=== PATIENT | male | born 1970 | race Caucasian/White ===

== ENCOUNTER 2023-12-11 11:16 | Outpatient (AMB) | payer BC, SELFPAY ==
[2023-12-11 11:18] VITALS: BP 124/78; PULSE 52; O2SAT 98; BMI 22.5
--- NOTE | 2023-12-11 11:18 | A.OFFPC_ITS ---
Vital Signs 12/11/23 11:18 Height 6 ft Weight 166 lb BMI 22.5 BP 124/78 Blood Pressure Location Lt brachial Position Sitting Pulse 52 Pulse Source Pulse Oximeter Pulse Oximetry (%) 98 Oxygen Delivery Method Room Air Intake Visit Reasons: SKI PATROLLER/Preventative Care Allergies No Known Allergies Allergy (Verified 12/11/23 11:31) Medication List - Last Reconciled 12/11/23 by Tari Lyno MD No Known Home Meds Tobacco use date assessed: 12/11/23 Dental Screening Dental Screen Date: 12/11/23 Did you have a dental visit in the last 12 months?: No Did you have a dental problem in the last 6 months where you did not have access to dental care?: No Was dental information given to patient?: No HPI SKI PATROLLER/Preventative Care HPI Details 53-year-old male being seen for the 1st time[facility] History (Updated 12/11/23 @ 12:00 by Tari Lyon MD) Left inguinal hernia Undescended left testicle Family History (Updated 12/11/23 @ 11:34 by Gretchen Pham CMA) Mother Breast cancer Substance use disorder Mental health disorder Sister No problems noted. Social History (Updated 12/11/23 @ 12:03 by Tari Lyon MD) Housing: House Alcohol intake: current Comment: 2-3 x a week 1-3 drinks Patient Tobacco Use Status: Former Tobacco user Tobacco use type: Cigarette Years Smoked: quit 2009 1/2 pack a day 5-6 years. once a week marijuana e-Cigarette/Vaping Use: Never Used Second Hand Smoke Exposure: No service: No Current occupational status: employed Current occupation: Construction Cognitive needs: No Hearing needs: No Vision needs: Yes Questionnaire PHQ-9 Over the last 2 weeks, how often have you been bothered by any of the following problems? 1. Little interest or pleasure in doing things: not at all 2. Feeling down, depressed, or hopeless: not at all 3. Trouble falling or staying asleep, or sleeping too much: not at all 4. Feeling tired or having little energy: not at all 5. Poor appetite or overeating: not at all 6. Feeling bad about yourself - or that you are a failure or have let yourself or your family down: not at all 7. Trouble concentrating on things, such as reading the newspaper or watching television: not at all 8. Moving or speaking so slowly that other people could have noticed. Or the opposite - being so fidgety or restless that you have been moving around a lot more than usual: not at all 9. Thoughts that you would be better off or of hurting yourself in some way: not at all Total score: 0 Depression Screening Interpretation: Negative Depression Screening Done: Yes 59042 - PHQ-9 Billing: Yes Source: Developed by Drs. Ilya Maldonado, Kinjal Polanco, Gerson Pedro and colleagues, with an educational jane from [employer]. Thrive Questionnaire Date Thrive assessed: 12/11/23 I am a: Patient What is your living situation today?: I have a steady place to live Within the past 12 months, did the food you bought not last and you didn't have the money to get more?: Never true Within the past 12 months, did you worry whether your food would run out before you got money to buy more?: Never true Do you have trouble paying for medicines?: No Do you have trouble getting transportation to medical appointments?: No Do you have trouble paying your heating and electricity bill?: No Do you have trouble taking care of your child, family member or friend?: No Do you have trouble with day-to-day activities such as bathing, preparing meals, shopping, managing finances, etc.?: No Are you currently unemployed and looking for a job?: No Are you interested in more education?: No Currently or been in a relationship where the following occur: No concerns reported THRIVE Score: 0 AUDIT C Alcohol Use Questionnaire (AUDIT-C) 1. How often do you have a drink containing alcohol?: 2-3 times a week 2. How many drinks containing alcohol do you have on a typical day when you are drinking?: 3 or 4 3. How often do you have six or more drinks on one occasion?: Never Total Score: 4 JANIE-7 AMB Questionnaire JANIE-7 Date JANIE - 7 assessed: 12/11/23 Feeling nervous, anxious, or on edge: 1 = Several days Not being able to stop or control worryin = Not at all Worrying too much about different things: 0 = Not at all Trouble relaxin = Not at all Being so restless that it is hard to sit still: 0 = Not at all Becoming easily annoyed or irritable: 0 = Not at all Feeling afraid as if something awful might happen: 0 = Not at all Total JANIE-7 score (0-4 normal; 5-9 mild; 10-14 moderate; 15-21 severe): 1 Source: Developed by Drs. Ilya Maldonado, Kinjal Polanco, Gerson Pedro and colleagues, with an educational jane from [employer]. Physical exam (Primary Care) Vital Signs: Last Vital Signs Pulse 52 12/11/23 11:18 BP 124/78 12/11/23 11:18 Pulse Ox 98 12/11/23 11:18 Oxygen Delivery Method Room Air 12/11/23 11:18 BMI result Body Mass Index 22.5 Tobacco/Smoking Status: Tobacco use Status Tobacco use date assessed 12/11/23 12/11/23 11:37 Patient Tobacco Use Status Former Tobacco user 12/11/23 11:37 Tobacco use type Cigarette 12/11/23 11:37 e-Cigarette/Vaping Use Never Used 12/11/23 11:37 PHQ-9: PHQ-9 Score PHQ-9: Total score 0 12/11/23 11:37 Depression Screening Interpretation: Negative Thrive Assessment: Date of Thrive Assessment Date Thrive assessed 12/11/23 12/11/23 11:19 Currently or been in a relationship where the following occur: No concerns reported Const General: alert; No acute distress Eyes Conjunctivae: conjunctivae normal Resp Auscultation: clear to auscultation bilaterally Cardio Rate: regular rate Rhythm: regular rhythm GI Inspection: Yes normal to inspection Extrem General: Yes normal to inspection and No edema Assessment and Plan Assessment & Plan (1) SOB (shortness of breath): Code(s): R06.02 - Shortness of breath (2) GERD (gastroesophageal reflux disease): Code(s): K21.9 - Gastro-esophageal reflux disease without esophagitis (3) Colon cancer screening: Code(s): Z12.11 - Encounter for screening for malignant neoplasm of colon Orders: Orders Complete Blood Count Auto Diff Today R06.02 - Shortness of breath Lipid Panel Today E78.00 - Pure hypercholesterolemia, unspecified, R06.02 - Shortness of breath Prostate Specific Antigen Scr Today R06.02 - Shortness of breath PFT pulmonary function test Today R06.02 - Shortness of breath Comprehensive Met. Panel Today R06.02 - Shortness of breath Free T4 (Free Thyroxine) Today R06.02 - Shortness of breath Thyroid Stimulating Hormone Today R06.02 - Shortness of breath Vitamin B12 and Folate Today R06.02 - Shortness of breath Referrals Gastroenterology Referral Z12.11 - Encounter for screening for malignant neoplasm of colon Coding Level of Care Code New Pt Level 4 (46498) Diagnoses SOB (shortness of breath) R06.02 GERD (gastroesophageal reflux disease) K21.9 Colon cancer screening Z12.11
== END 2023-12-11 12:16 | disposition home or self-care (01) ==
PROVIDERS: Visit Provider Internal Medicine
DX: R06.02 Shortness of breath (principal); K21.9 Gastro-esophageal reflux disease without esophagitis; Z12.11 Encounter for screening for malignant neoplasm of colon
CPT/HCPCS: 99204

== ENCOUNTER 2024-07-11 09:23 | Outpatient (AMB) | payer BC, SELFPAY ==
--- NOTE | 2024-07-11 09:35 | A.OFFPC_ITS ---
Vital Signs 07/11/24 09:40 Height 6 ft Weight 158 lb 2 oz BMI 21.4 BP 100/60 Blood Pressure Location Lt brachial Position Sitting Pulse 67 Pulse Source Pulse Oximeter Temp 96.9 F Temp Source Temporal Artery Scan Pulse Oximetry (%) 100 Oxygen Delivery Method Room Air Intake Visit Reasons: annual exam Intake Note: Patient is here today for a physical. 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 Lyon coming in for annual exam. In review of the notes patient was referred to GI last year for colonoscopy but missed his appointment. Patient tells us today he is feeling generally well. He was told in the past he has a diagnosis of COPD and he will occasionally have shortness of breath and coughing episodes that resolved spontaneously. He has never been treated for COPD and did not complete the pulmonary function testing he was sent for last year. Otherwise he has no other concerns today [facility] Surgical History Left inguinal hernia Undescended left testicle Family History (Updated 07/11/24 @ 10:03 by Faby Mclaughlin PA-C) Mother Breast cancer Substance use disorder Mental health disorder Sister No problems noted. Maternal Grandfather Liver cancer Social History Housing: House Alcohol intake: current Comment: 2-3 x a week 1-3 drinks Patient Tobacco Use Status: Former Tobacco user Tobacco use type: Cigarette Years Smoked: quit 2009 1/2 pack a day 5-6 years. once a week marijuana e-Cigarette/Vaping Use: Never Used Second Hand Smoke Exposure: No service: No Current occupational status: employed Current occupation: Construction Cognitive needs: No Hearing needs: No Vision needs: Yes Questionnaire PHQ-9 Over the last 2 weeks, how often have you been bothered by any of the following problems? 1. Little interest or pleasure in doing things: not at all 2. Feeling down, depressed, or hopeless: not at all 3. Trouble falling or staying asleep, or sleeping too much: not at all 4. Feeling tired or having little energy: not at all 5. Poor appetite or overeating: not at all 6. Feeling bad about yourself - or that you are a failure or have let yourself or your family down: not at all 7. Trouble concentrating on things, such as reading the newspaper or watching television: not at all 8. Moving or speaking so slowly that other people could have noticed. Or the opposite - being so fidgety or restless that you have been moving around a lot more than usual: not at all 9. Thoughts that you would be better off or of hurting yourself in some way: not at all Total score: 0 Depression Screening Interpretation: Negative Depression Screening Done: Yes 83018 - PHQ-9 Billing: Yes Source: Developed by Drs. Ilya Maldonado, Kinjal Polanco, Gerson Pedro and colleagues, with an educational jane from [employer]. Thrive Questionnaire Date Thrive assessed: 07/11/24 I am a: Patient What is your living situation today?: I have a steady place to live Within the past 12 months, did the food you bought not last and you didn't have the money to get more?: Never true Within the past 12 months, did you worry whether your food would run out before you got money to buy more?: Never true Do you have trouble paying for medicines?: No Do you have trouble getting transportation to medical appointments?: No Do you have trouble paying your heating and electricity bill?: No Do you have trouble taking care of your child, family member or friend?: No Do you have trouble with day-to-day activities such as bathing, preparing meals, shopping, managing finances, etc.?: No Are you currently unemployed and looking for a job?: No Are you interested in more education?: Yes Please select the resources that you would like help with: None Currently or been in a relationship where the following occur: No concerns reported THRIVE Score: 0 AUDIT C Alcohol Use Questionnaire (AUDIT-C) 1. How often do you have a drink containing alcohol?: Monthly or less 2. How many drinks containing alcohol do you have on a typical day when you are drinking?: 1 or 2 3. How often do you have six or more drinks on one occasion?: Never Total Score: 1 JANIE-7 AMB Questionnaire JANIE-7 Date JANIE - 7 assessed: 07/11/24 Feeling nervous, anxious, or on edge: 0 = Not at all Not being able to stop or control worryin = Not at all Worrying too much about different things: 0 = Not at all Trouble relaxin = Not at all Being so restless that it is hard to sit still: 0 = Not at all Becoming easily annoyed or irritable: 0 = Not at all Feeling afraid as if something awful might happen: 0 = Not at all Total JANIE-7 score (0-4 normal; 5-9 mild; 10-14 moderate; 15-21 severe): 0 Source: Developed by Drs. Ilya Maldonado, Kinjal Polanco, Gerson Pedro and colleagues, with an educational jane from [employer]. JANIE-7 Assessment Billing JANIE-7 Assessment Tool: JANIE-7 Assessment 60589 Review of Systems Const Denies body aches, Denies fatigue, Denies fever(s), Denies frequent falls, Denies headache(s) and Denies weakness Eyes Reports no additional complaints and Denies change in vision ENT Denies dysphagia, Denies dizziness, Denies facial pain, Denies headache(s), Denies nasal congestion and Denies odynophagia Card Denies chest pain, Denies syncope, Denies irregular heart rhythm, Denies leg edema, Denies lightheadedness and Denies dyspnea Resp Denies cough and Denies dyspnea GI Denies abdominal pain, Denies constipation, Denies dysphagia, Denies dyspepsia, Denies diarrhea, Denies nausea, Denies odynophagia and Denies vomiting Denies dysuria, Denies urinary frequency, Denies urinary hesitancy and Denies urinary urgency Musc Denies back pain and Denies myalgias Skin/Breast Reports system reviewed and no additional complaints, except as documented Neuro Denies dizziness, Denies syncope, Denies frequent falls, Denies headache(s) and Denies weakness Psych Reports no additional complaints Endo Denies fatigue Physical exam (Primary Care) Vital Signs: Last Vital Signs Temp 96.9 F 07/11/24 09:40 Pulse 67 07/11/24 09:40 BP 100/60 07/11/24 09:40 Pulse Ox 100 07/11/24 09:40 Oxygen Delivery Method Room Air 07/11/24 09:40 BMI result Body Mass Index 21.4 Tobacco/Smoking Status: Tobacco use Status Tobacco use date assessed 07/11/24 07/11/24 09:43 Patient Tobacco Use Status Former Tobacco user 07/11/24 09:37 Tobacco use type Cigarette 07/11/24 09:37 e-Cigarette/Vaping Use Never Used 07/11/24 09:37 PHQ-9: PHQ-9 Score PHQ-9: Total score 0 07/11/24 09:54 Depression Screening Interpretation: Negative Thrive Assessment: Date of Thrive Assessment Date Thrive assessed 07/11/24 07/11/24 09:37 Currently or been in a relationship where the following occur: No concerns reported Const General: cooperative, healthy appearing, comfortable and no acute distress Orientation/consciousness: patient oriented x3 HENMT Head: Yes normocephalic Ears: hearing grossly normal bilaterally, external ears normal, TM's normal bilaterally and EAC's normal General nose exam: Normal external nose present Face and sinus: Yes normal facial exam and Yes sinuses nontender Mouth: Normal oral and palatal mucosa present and tongue normal Throat: Yes posterior oropharynx normal Eyes General: appearance normal, both eyes and all related structures Conjunctivae: conjunctivae normal Pupils: Equal, round and reactive pupils present EOM: EOMs intact bilaterally and No Nystagmus present Neck Neck: Yes normal visual inspection, Yes full ROM and Yes no lymphadenopathy Chest Chest palpation & inspection: normal inspection of the chest Resp Effort & Inspection: normal respiratory effort Auscultation: clear to auscultation bilaterally, no crackles, no rales, no rhonchi, no wheezes and breath sounds present Cardio Rate: regular rate Rhythm: regular rhythm Peripheral pulses: radial pulses present and dorsalis pedis present GI Inspection: Yes normal to inspection and No Abdominal wall edema Palpation (GI): Soft to palpation, not firm and nontender Auscultation: normal bowel sounds Rectal Exam - Male: Yes deferred General: Yes no CVA tenderness Back/Spine/Pelvis Back: no CVA tenderness Skin General skin exam: no rashes or lesions noted Neuro General: patient oriented x3 Cranial nerves: Yes Equal, round and reactive pupils present, Yes Midline tongue present, Yes Ability to bilaterally elevate shoulders present and No Nystagmus present Gait exam (Neuro): Normal gait present Extrem General: Yes normal to inspection, Yes full ROM, No no pedal edema and No edema Psych Speech and movement: Normal speech and movement present Affect: normal affect Insight: Good insight present (Psych) Judgement: Good judgement present (Psych) Immunizations Boostrix Tdap 2.5 Lf unit-8 mcg-5 Lf/0.5 mL intramuscular syringe Performing Provider: Faby Mclaughlin PA-C [place] [facility] [place] [facility] Administered by: BRIE Quintero on 07/11/24 10:11 Dose Route Admin Location Dispensed Lot Number Expiration Date [facility] [employer] Service Representative 0.5 mL IM Right Deltoid 0.5 mL [id number] 08/27/26 73029-572-99 [employer] VIS Given Date VIS Provided VIS Publication Date 07/11/24 Single Vaccine 21 Eligibility Eligibility Date Funding Source Not [facility] Eligible 07/11/24 Private Coding Level of Care Code Est Pt Prev Care 40-64y(39853) Diagnoses GERD (gastroesophageal reflux disease) K21.9 Colon cancer screening Z12.11 Annual physical exam Z00.00 Decreased vision H54.7 SOB (shortness of breath) R06.02 Additional Codes JANIE-7 Assessment Billing - JANIE-7 Assessment Tool: JANIE-7 Assessment 43917 ([id number]) PHQ-9 - 45122 - PHQ-9 Billing: Yes ([id number]) Assessment & Plan Assessment & Plan (1) GERD (gastroesophageal reflux disease): Code(s): K21.9 - Gastro-esophageal reflux disease without esophagitis Category: Medical Plan: Avoid trigger foods such as citrus, tomato products, soda, caffeine, spicy foods and other foods that may be irritating to your stomach. Avoid laying flat 3-4 hours after eating and elevate the head of the bed 30 degrees to prevent acid from moving into the esophagus. Symptoms have almost completely resolved with dietary modification (2) Colon cancer screening: Code(s): Z12.11 - Encounter for screening for malignant neoplasm of colon Category: Medical Plan: Updated the referral for colon cancer screening advised to follow up with GI (3) Annual physical exam: Code(s): Z00.00 - Encounter for general adult medical examination without abnormal findings Category: Medical Plan: Patient is up-to-date on all recommended routine screenings and vaccinations for his age. Tetanus vaccine was updated today. Reminded patient about blood work as it was not completed last year. Healthy diet and regular exercise is encouraged. (4) Decreased vision: Code(s): H54.7 - Unspecified visual loss Category: Medical Plan: Patient complaining of impaired vision that has been worsening over the last several years. Referral placed optometry. (5) SOB (shortness of breath): Code(s): R06.02 - Shortness of breath Category: Medical Plan: Patient having occasional shortness of breath episodes that resolved spontaneously and we will last for a few minutes. He does have a previous diagnosis of COPD and was a previous smoker. Ordered for pulmonary function testing. Orders: Orders Comprehensive Met. Panel Today R06.02 - Shortness of breath Free T4 (Free Thyroxine) Today R06.02 - Shortness of breath Thyroid Stimulating Hormone Today R06.02 - Shortness of breath TDaP Immunization Today Z23 - Encounter for immunization PFT pulmonary function test Today R06.02 - Shortness of breath Complete Blood Count Auto Diff Today R06.02 - Shortness of breath Lipid Panel Today E78.00 - Pure hypercholesterolemia, unspecified, R06.02 - Shortness of breath Prostate Specific Antigen Scr Today R06.02 - Shortness of breath Vitamin B12 and Folate Today R06.02 - Shortness of breath Referrals 2 Gastroenterology Referral Z12.11 - Encounter for screening for malignant neoplasm of colon Optometry Referral H54.7 - Unspecified visual loss, Z00.00 - Encounter for general adult medical examination without abnormal findings
[2024-07-11 09:40] VITALS: BP 100/60; PULSE 67; TEMP 36.1; O2SAT 100; BMI 21.4
== END 2024-07-11 10:24 | disposition home or self-care (01) ==
PROVIDERS: PCP Internal Medicine
DX: K21.9 Gastro-esophageal reflux disease without esophagitis (principal); Z12.11 Encounter for screening for malignant neoplasm of colon; Z00.00 Encounter for general adult medical examination without abnormal findings; H54.7 Unspecified visual loss; R06.02 Shortness of breath; Z23 Encounter for immunization

== ENCOUNTER → 2024-07-11 09:23 | Outpatient (BNVA) | payer BC, SELFPAY | PROVIDERS: PCP Internal Medicine | DX: Z00.00 Encounter for general adult medical examination without abnormal findings (principal); Z23 Encounter for immunization; K21.9 Gastro-esophageal reflux disease without esophagitis; H54.7 Unspecified visual loss; R06.02 Shortness of breath | CPT/HCPCS: 90471; 90715; 96127 ==

== ENCOUNTER 2025-06-08 08:24 | Outpatient (AMB) | payer BC, SELFPAY ==
--- OUTSIDE RECORDS SUMMARY | 2025-06-08 08:29 | XMS_ITS | Clinical Summary ---
Author Organization [facility] Address [address] [place] [phone] Phone Care Team Providers Care Take Away Man Name Role Phone Pcp, Unknown Primary Care Provider Unavailabl e Allergies No known active allergies Medications No known medications Social History Tobacco Use Types Packs/Day Years Used Date Smoking Tobacco: Never Assessed Education Answer Date Recorded Are you interested in more education? Not on sadiq e 10/07/2022 Are you concerned about learning? Not on file 10/07/2022 No 10/07/2022 No 10/07/2022 Digital Access Answer Date Recorded No 11/05/2022 No 11/05/2022 No 11/05/2022 Reliable internet access at home? Not on file 11/05/2022 Device with a working camera? Not on file Sex and Gender Information Value Date Recorded Sex Assigned at Not on file Legal Sex Male 9:11 AM EDT Gender Identity Not on file Sexual Orientation Not on file Last Filed Vital Signs Vital Sign Reading Time Taken Comments Blood Pressure 108/62 07/06/2022 10:25 AM EST Pulse 68 07/06/2022 10:25 AM EST Temperature - - Respiratory Rate 18 07/06/2022 10:25 AM EST Oxygen Saturation 98% 07/06/2022 10:25 AM EST Inhaled Oxygen Concentration - - Weight 79.4 kg (175 lb) 07/06/2022 10:25 AM EST Height 188 cm (6' 2 ) 07/06/2022 10:25 AM EST Body Mass Index 22.47 07/06/2022 10:25 AM EST Plan of Treatment Health Maintenance Due Date Last Done Comments Adult Td,Tdap Booster 1968 LIPID PANEL 1968 DEPRESSION SCREENING 1980 SMOKING Hx and SMOKELESS TOBACCO SCREENING 01/12/1981 HEPATITIS C SCREENING 01/12/1986 HIV ONE-TIME SCREENING (18-6 5 YEARS) 01/12/1986 COLOGUARD 01/12/2013 COLONOSCOPY 01/12/2013 COLORECTAL CANCER SCREENING 01/12/2013 FIT TEST 01/12/2013 FOBT 01/12/2013 SIGMOIDOSCOPY 01/12/2013 VIRTUAL COLONOSCOPY 01/12/2013 PNEUMOCOCCAL VACCINES (50+ years) (1 of 1 - PCV) 01/12/2018 ZOSTER VACCINES (1 of 2) 01/12/2018 INFLUENZA VACCINE (#1) 2025 06/23/2019 COVID-19 VACCINE (3 - 2024-2 6 season) 2025 10/25/2020, 10/04/2020 RSV VACCINE (1 - 1-dose 75+ series) 01/12/2043 HEPATITIS A VACCINES Aged Out No long er eligible based on patient's age to complete this topic HIB VACCINES Aged Out No longer eligi ble based on patient's age to complete this topic MENINGOCOCCAL VACCINES (ACWY) Aged Out No longer eligible based on patient's age to complete this topic MENINGOCOCCAL VACCINES (B) Aged Out N o longer eligible based on patient's age to complete this topic Medical Devices Not on file Insurance PPO PPO OUT [facility] PPO OUT OF [facility] PPO OUT OF [facility] [place] [address] [place] [address] OUT OF STATE PPO Care Teams Take Away Man Relationship Specialty Start Date End Date Pcp, Unknown PCP - General 10/31/21 Additional Source Comments The information contained in this document represents components of the legal health record. It is not the complete legal health record.[facility]
--- NOTE | 2025-06-08 08:31 | A.OFFPC_ITS ---
Vital Signs 06/08/25 08:32 Height 6 ft Weight 162 lb 8 oz BMI 22.0 BP 110/80 Blood Pressure Location Lt brachial Position Sitting Respiration 18 Pulse 67 Pulse Source Pulse Oximeter Temp 98.6 F Temp Source Temporal Artery Scan Pulse Oximetry (%) 98 Oxygen Delivery Method Room Air Intake Visit Reasons: Check lung health and overall condition. 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 HPI Details 55-year-old male with past medical histo ry of GERD last seen 06/2024 coming in for acute problem. Presenting for a health maintenance visit. He reports a recurring meniscus issue in his knee, which has been bothering him for the past 2-3 weeks, though it is now improving. 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 He does not recall the last knee x- ray, estimating it was at least 2 years ago. The patient previously experienced shortness of breath, but this has resolved. He incorporates exercise by walking up six flights of stairs at work daily and has noticed an improvement in his cardiovascular fitness. Since his last visit, he has had an eye exam and now wears contacts. His tetanus vaccine is up to date, received this year, but he did not get a flu shot. The patient experienced a nearly year-long gap in health insurance coverage after being laid off for six months, but his coverage has since been restored. ON LICENSE OF [facility] Surgical History Left inguinal hernia Undescended left testicle Family History Mother Breast cancer Substance use disorder Mental health disorder Sister No problems noted. Maternal Grandfather Liver cancer Social History Housing: House Alcohol intake: current Comment: 2-3 x a week 1-3 drinks Patient Tobacco Use Status: Former Tobacco user Tobacco use type: Cigarette Years Smoked: quit 2009 1/2 pack a day 5-6 years. once a week marijuana e-Cigarette/Vaping Use: Never Used Second Hand Smoke Exposure: No service: No Current occupational status: employed Current occupation: Construction Cognitive needs: No Hearing needs: No Vision needs: Yes Questionnaire Thrive Questionnaire Date Thrive assessed: 07/11/24 I am a: Patient What is your living situation today?: I have a steady place to live Within the past 12 months, did the food you bought not last and you didn't have the money to get more?: Never true Within the past 12 months, did you worry whether your food would run out before you got money to buy more?: Never true Do you have trouble paying for medicines?: No Do you have trouble getting transportation to medical appointments?: No Do you have trouble paying your heating and electricity bill?: No Do you have trouble taking care of your child, family member or friend?: No Do you have trouble with day-to-day activities such as bathing, preparing meals, shopping, managing finances, etc.?: No Are you currently unemployed and looking for a job?: No Are you interested in more education?: Yes Currently or been in a relationship where the following occur: No concerns reported THRIVE Score: 0 JANIE-7 AMB Questionnaire JANIE-7 Date JANIE - 7 assessed: 07/11/24 Source: Developed by Drs. Ilya Maldonado, Kinjal Polanco, Gerson Pedro and colleagues, with an educational jane from [employer]. Review of Systems Const Denies body aches, Denies chills, Denies fever(s), Denies headache(s) and Denies poor appetite Eyes Reports no additional complaints ENT Denies dizziness and Denies headache(s) Card Denies chest pain, Denies edema, Denies lightheadedness and Denies dyspnea Resp Denies dyspnea GI Denies abdominal pain, Denies nausea and Denies vomiting Reports no additional complaints Musc Reports as per HPI and Denies abnormal gait Skin/Breast Reports system reviewed and no additional complaints, except as documented Neuro Denies abnormal gait, Denies dizziness and Denies headache(s) Psych Reports no additional complaints Physical exam (Primary Care) Vital Signs: Last Vital Signs Temp 98.6 F 06/08/25 08:32 Pulse 67 06/08/25 08:32 Resp 18 06/08/25 08:32 BP 110/80 06/08/25 08:32 Pulse Ox 98 06/08/25 08:32 Oxygen Delivery Method Room Air 06/08/25 08:32 BMI result Body Mass Index 22.0 Tobacco/Smoking Status: Tobacco use Status Tobacco use date assessed 07/11/24 06/08/25 08:37 Patient Tobacco Use Status Former Tobacco user 06/08/25 08:37 Tobacco use type Cigarette 06/08/25 08:37 e-Cigarette/Vaping Use Never Used 06/08/25 08:37 Thrive Assessment: Date of Thrive Assessment Date Thrive assessed 07/11/24 06/08/25 08:37 Currently or been in a relationship where the following occur: No concerns reported Const General: cooperative, healthy appearing, comfortable and no acute distress Orientation/consciousness: patient oriented x3 HENMT Head: Yes normocephalic Ears: hearing grossly normal bilaterally General nose exam: Normal external nose present Eyes General: appearance normal, both eyes and all related structures Conjunctivae: conjunctivae normal Neck Neck: Yes full ROM and Yes no lymphadenopathy Resp Effort & Inspection: normal respiratory effort Auscultation: clear to auscultation bilaterally, no crackles, no rales, no rhonchi and no wheezes Cardio Rate: regular rate Rhythm: regular rhythm Skin General skin exam: no rashes or lesions noted Neuro General: patient oriented x3 Gait exam (Neuro): Normal gait present Extrem General: Yes normal to inspection, Yes full ROM and No edema Psych Affect: normal affect Attitude: cooperative Insight: Good insight present (Psych) Judgement: Good judgement present (Psych) Coding Level of Care Code Est Pt Level 3 (13439) Diagnoses Right knee pain M25.561 Decreased vision H54.7 GERD (gastroesophageal reflux disease) K21.9 Colon cancer screening Z12.11 SOB (shortness of breath) R06.02 Assessment & Plan Assessment & Plan (1) Right knee pain: Code(s): M25.561 - Pain in right knee Category: Medical Plan: The patient reports recurring knee pain, likely a meniscal issue, aggravated by his occupation. An x-ray of the knee will be ordered to have available for specialty consultation. A referral will be placed to orthopedics for further evaluation and management; the patient will be contacted by their office to schedule an appointment. (2) Decreased vision: Code(s): H54.7 - Unspecified visual loss Category: Medical Plan: Has recently obtained eye glasses and has been doing well with new rx. (3) GERD (gastroesophageal reflux disease): Code(s): K21.9 - Gastro-esophageal reflux disease without esophagitis Category: Medical Plan: Avoid trigger foods such as citrus, tomato products, soda, caffeine, spicy foods and other foods that may be irritating to your stomach. Avoid laying flat 3-4 hours after eating and elevate the head of the bed 30 degrees to prevent acid from moving into the esophagus. Well controlled with diet. (4) Colon cancer screening: Code(s): Z12.11 - Encounter for screening for malignant neoplasm of colon Category: Medical Plan: [facility]. (5) SOB (shortness of breath): Code(s): R06.02 - Shortness of breath Category: Medical Plan: Resolved at this time he will continue to monitor. Plan This note was constructed using voice recognition software. While every effort has been made to ensure accuracy and svp research and strategic analysis, still areas may have been in cluded sometimes these areas may affect the content or meeting of the given symptoms. Total time spent caring for the patient today was 20 minutes. This includes time spent before the visit reviewing the chart, time spent during the visit, and time spent after the visit and documentation. Patient was informed and verbally consented to the use of an ambient scribe for clinic note documentation during this visit. Orders: Orders XR knee RT 2V Today M25.561 - Pain in right knee TSH reflex Free T4 Today Z13.29 - Encounter for screening for other suspected endocrine disorder Vitamin B12 and Folate Today Z13.21 - Encounter for screening for nutritional disorder Vitamin D 25-OH Total Today Z13.21 - Encounter for screening for nutritional disorder UA CC w/rflx Micro + Cult Today Z13.9 - Encounter for screening, unspecified Lipid Panel Today Z13.220 - Encounter for screening for lipoid disorders PSA, Ultra Sensitive Today Z12.5 - Encounter for screening for malignant neoplasm of prostate Comprehensive Met. Panel Today K21.9 - Gastro-esophageal reflux disease without esophagitis, Z00.00 - Encounter for general adult medical examination without abnormal findings Complete Blood Count Auto Diff Today K21.9 - Gastro-esophageal reflux disease without esophagitis, Z13.0 - Encounter for screening for diseases of the blood and blood-forming organs and certain disorders involving the immune mechanism Free T4 (Free Thyroxine) Today Z13.29 - Encounter for screening for other suspected endocrine disorder Referrals Cologuard Test Z12.11 - Encounter for screening for malignant neoplasm of colon, Z12.12 - Encounter for screening for malignant neoplasm of rectum Orthopedics Referral M25.561 - Pain in right knee
[2025-06-08 08:32] VITALS: BP 110/80; PULSE 67; RESP 18; TEMP 37; O2SAT 98; BMI 22.0
== END 2025-06-08 08:56 | disposition home or self-care (01) ==
LOC: HO.HMCH 08:25
PROVIDERS: PCP Internal Medicine
DX: M25.561 Pain in right knee (principal); H54.7 Unspecified visual loss; K21.9 Gastro-esophageal reflux disease without esophagitis; Z12.11 Encounter for screening for malignant neoplasm of colon; R06.02 Shortness of breath